=== PATIENT | male | born 1970 | race Caucasian/White ===

== ENCOUNTER 2019-03-24 21:59 | Emergency (ER) | payer OTHER ==
[~2019-03-24] VITALS: Ht 182.9 cm; Wt 90.7 kg
[2019-03-24] MEDS ORDERED: METFORMIN HCL500 MG PO (22:10)
[2019-03-24] MEDS ORDERED: TRAZODONE 150150 M1 (22:11)
[2019-03-24] MEDS ORDERED: LANTUS100 UNIT/M (22:11)
[2019-03-24] MEDS ORDERED: ALPRAZOLAM2 M1 (22:11)
[2019-03-24] MEDS ORDERED: NOVOLIN R100 UNIT/1 (22:12)
[2019-03-24 22:26] LABS: HEMATOCRIT 46.4 % (42.0-52.0); HEMOGLOBIN 16.1 gm/dL (14.0-18.0); MCH 30.3 pg (26.0-34.0); MCHC 34.8 g/dL (28.0-37.0); MCV 87.1 fL (80.0-100.0); MPV 7.7 fl. (7.2-11.1); NUCLEATED RBCS 0 /100WBC; PLATELET COUNT* 285 thou/uL (150-400); RBC 5.32 mil/uL (4.50-6.00); RDW-CV 14.6 % (10.5-14.5); WBC 12.9 thou/uL (4.0-11.0)
[2019-03-24 22:29] LABS: ANION GAP 11 mmol/L (7-16); BUN 14 mg/dL (7-18); CALCIUM 9.5 mg/dL (8.5-10.1); CHLORIDE 101 mmol/L (98-107); CO2 26 mmol/L (21-32); CREATININE 1.2 mg/dL (0.6-1.3); GLUCOSE 167 mg/dL (70-99); POTASSIUM 3.4 mmol/L (3.5-5.1); SODIUM 138 mmol/L (136-145)
[2019-03-24 22:33] LABS: APTT 25.5 Seconds (25.0-31.3); PROTIME 10.3 Seconds (9.20-11.50)
[2019-03-24 22:43] LABS: ALBUMIN 3.9 g/dL (3.4-5.0); ALKALINE PHOSPHATASE 69 U/L (46-116); CK-MB MASS 2.3 ng/mL (<0.5-3.6); LIPASE 120 U/L (73-393); MAGNESIUM 1.5 mg/dL (1.8-2.4); NT-PRO BRAIN NAT PEPTIDE 5 pg/mL (<300); SGOT 12 U/L (15-37); SGPT 23 U/L (30-65); TOTAL BILIRUBIN 0.4 mg/dL (<0.1-1.0); TOTAL PROTEIN 7.2 g/dL (6.4-8.2); TROPONIN-I LEVEL <0.06 ng/mL (<0.06)
[2019-03-24 23:00] LABS: ABSOLUTE EOSINOPHILS 0.6 thou/uL (0.0-0.7); ABSOLUTE LYMPHOCYTES 7.9 thou/uL (0.8-5.3); ABSOLUTE NEUTROPHILS 3.4 thou/uL (1.6-8.1)
[2019-03-24 23:01] LABS: PLATELET ESTIMATE ADEQUATE
[2019-03-25 00:45] VITALS: BP 108/70
--- NOTE | 2019-03-25 14:07 | EKG ---
[place] [address] ELECTROCARDIOGRAM REPORT Name: DANNIELLE STARKEY Room: [facility]#: [id number] Admission: 03/24/19 Attend Phys: Discharge: 03/25/19 Date of : 74 Report #: [id number] THIS REPORT FOR: //name// [facility] ED Test Date: 2019-03-24 Test Time: 22:02:37 Pat Name: DANNIELLE STARKEY Department: Room: Gender: M Licensed Investment Sales Assistant: [place] : 1970 Requested By: Elijah Rondon Order Number: [id number] MD: Aniket Jimenez Measurements Intervals [place] Rate: 77 P: 47 TN: 170 QRS: 50 QRSD: 92 T: 31 QT: 374 QTc: 424 Interpretive Statements Sinus rhythm Borderline low voltage, extremity leads No previous ECG available for comparison Electronically Signed On 03-25-2019 14:07:08 CDT by Aniket Jimenez [email or web address] <ELECTRONICALLY SIGNED> By: Aniket Jimenez MD, FACC 03/25/19 1407 220 220 Aniket Jimenez MD, FACC /EPI
== END 2019-03-25 00:45 | disposition home or self-care (01) ==
LOC: M.ERS 21:59
PROVIDERS: Family Medicine
DX: R07.89 Other chest pain (principal); E11.9 Type 2 diabetes mellitus without complications; Z88.5 Allergy status to narcotic agent; Z90.49 Acquired absence of other specified parts of digestive tract; Z79.4 Long term (current) use of insulin

== ENCOUNTER 2019-09-02 10:02 | Emergency (ER) | payer OTHER ==
[~2019-09-02] VITALS: Ht 182.9 cm; Wt 95.3 kg
[~2019-09-02 10:02] MED LIST: ALPRAZOLAM2 M1; LANTUS100 UNIT/M; METFORMIN HCL500 MG PO; NOVOLIN R100 UNIT/1; TRAZODONE 150150 M1
[2019-09-02 10:42] LABS: INFLUENZA A ANTIGEN Negative (Negative); INFLUENZA B ANTIGEN Negative (Negative)
[2019-09-02] MEDS ORDERED: ONDANSETRON HCL4 M2 PO (11:06)
[2019-09-02] MEDS ORDERED: TAMIFLU75 MG PO (11:06)
[2019-09-02] MEDS ORDERED: VENTOLIN HFA 1818 GM INH (11:07)
[2019-09-02 11:24] VITALS: BP 140/93
== END 2019-09-02 11:25 | disposition home or self-care (01) ==
LOC: M.ERS 10:02
PROVIDERS: Nurse Practitioner Family
DX: J06.9 Acute upper respiratory infection, unspecified (principal); E11.9 Type 2 diabetes mellitus without complications; Z88.5 Allergy status to narcotic agent; Z88.8 Allergy status to other drugs, medicaments and biological substances; Z90.49 Acquired absence of other specified parts of digestive tract; Z79.4 Long term (current) use of insulin

== ENCOUNTER 2019-11-24 07:53 | Emergency (ER) | payer BC ==
[~2019-11-24] VITALS: Ht 203.2 cm; Wt 90.7 kg
[~2019-11-24 07:53] MED LIST changes: +ONDANSETRON HCL4 M2 PO; +TAMIFLU75 MG PO; +VENTOLIN HFA 1818 GM INH
[2019-11-24] MEDS ORDERED: CHOLESTEROL MED (08:06)
[2019-11-24] MEDS ORDERED: HIGH BP MED (08:06)
[2019-11-24 08:26] LABS: ABSOLUTE BASOPHILS 0.1 thou/uL (0.0-0.2); ABSOLUTE EOSINOPHILS 0.3 thou/uL (0.0-0.7); ABSOLUTE LYMPHOCYTES 6.7 thou/uL (0.8-5.3); ABSOLUTE MONOCYTES 0.6 thou/uL (0.0-1.2); ABSOLUTE NEUTROPHILS 3.6 thou/uL (1.6-8.1); BASOPHILS 0.5 %; EOSINOPHILS 2.4 %; HEMOGLOBIN 16.9 gm/dL (14.0-18.0); LYMPHOCYTES 59.7 %; MCH 30.5 pg (26.0-34.0); MCHC 34.6 g/dL (28.0-37.0); MCV 88.1 fL (80.0-100.0); MPV 7.3 fl. (7.2-11.1); NUCLEATED RBCS 0 /100WBC; PLATELET COUNT* 269 thou/uL (150-400); POLYS 32.4 %; RBC 5.56 mil/uL (4.50-6.00); RDW-CV 14.4 % (10.5-14.5); WBC 11.2 thou/uL (4.0-11.0)
[2019-11-24 08:38] LABS: PROTIME 10.1 Seconds (9.20-11.50)
[2019-11-24 08:40] LABS: CALCIUM 8.6 mg/dL (8.5-10.1)
[2019-11-24 08:49] LABS: ALBUMIN 3.9 g/dL (3.4-5.0); TOTAL BILIRUBIN 0.4 mg/dL (<0.1-1.0); TOTAL PROTEIN 7.4 g/dL (6.4-8.2)
[2019-11-24] MEDS ORDERED: TRAMADOL 50 MG50 MG PO (09:30)
[2019-11-24 09:53] VITALS: BP 111/79
--- NOTE | 2019-11-24 15:29 | EKG ---
[place] [address] ELECTROCARDIOGRAM REPORT Name: JAKYDANNIELLE W Room: [facility]#: [id number] Admission: 11/24/19 Attend Phys: Discharge: 11/24/19 Date of : 74 Date of Service: 11/24/19 0804 Report #: [id number] THIS REPORT FOR: //name// [facility] ED Test Date: 2019-11-24 Test Time: 08:04:56 Pat Name: DANNIELLE STARKEY Department: Room: Gender: Personnel And Payroll Technician: S : 1970 Requested By: Elijah Rondon Order Number: [id number] MD: Cesario Pierce Measurements Intervals [place] Rate: 87 P: 55 HI: 164 QRS: 53 QRSD: 91 T: 44 QT: 368 QTc: 443 Interpretive Statements Sinus rhythm Baseline wander in lead(s) V2 Compared to ECG 03/24/2019 22:02:37 No significant changes Electronically Signed On 11-24-2019 15:28:08 CDT by Cesario Pierce [email or web address] <ELECTRONICALLY SIGNED> By: Cesario Pierce MD, [facility] 11/24/19 1528 0804 0804 Cesario Pierce MD, [facility] /EPI
== END 2019-11-24 09:55 | disposition home or self-care (01) ==
LOC: M.ERS 07:53
PROVIDERS: Family Medicine
DX: R55 Syncope and collapse (principal); Z88.6 Allergy status to analgesic agent; E11.9 Type 2 diabetes mellitus without complications

== ENCOUNTER 2020-04-12 08:51 | Emergency (ER) | payer OTHER ==
[~2020-04-12] VITALS: Ht 182.9 cm; Wt 87.1 kg
[~2020-04-12 08:51] MED LIST changes: +CHOLESTEROL MED; +HIGH BP MED; +TRAMADOL 50 MG50 MG PO
[2020-04-12] MEDS ORDERED: ZOFRAN ODT4 MG PO (10:32)
[2020-04-12] MEDS ORDERED: NORCO 5-325 TA1 EAC2 PO (10:32)
[2020-04-12 11:00] VITALS: BP 156/89
== END 2020-04-12 11:01 | disposition home or self-care (01) ==
LOC: M.ERS 08:51
DX: M23.91 Unspecified internal derangement of right knee (principal); E11.9 Type 2 diabetes mellitus without complications; Z88.5 Allergy status to narcotic agent; Z88.6 Allergy status to analgesic agent; Z90.49 Acquired absence of other specified parts of digestive tract; Z79.4 Long term (current) use of insulin

== ENCOUNTER 2020-06-22 09:54 | Emergency (ER) | payer OTHER ==
[~2020-06-22] VITALS: Ht 182.9 cm; Wt 83.0 kg
[~2020-06-22 09:54] MED LIST changes: +NORCO 5-325 TA1 EAC2 PO; +ZOFRAN ODT4 MG PO
[2020-06-22] MEDS ORDERED: VICTOZA0.6 MG/0.1 SUBQ (10:06)
[2020-06-22 10:39] LABS: HEMATOCRIT 45.2 % (42.0-52.0); HEMOGLOBIN 15.3 gm/dL (14.0-18.0); MCH 29.8 pg (26.0-34.0); MCHC 33.8 g/dL (28.0-37.0); MCV 87.9 fL (80.0-100.0); MPV 7.1 fl. (7.2-11.1); NUCLEATED RBCS 0 /100WBC; PLATELET COUNT* 241 thou/uL (150-400); RBC 5.14 mil/uL (4.50-6.00); RDW-CV 14.4 % (10.5-14.5); WBC 9.9 thou/uL (4.0-11.0)
[2020-06-22 10:54] LABS: ALBUMIN 3.7 g/dL (3.4-5.0); CALCIUM 8.8 mg/dL (8.5-10.1); POTASSIUM 3.8 mmol/L (3.5-5.1); TOTAL BILIRUBIN 0.4 mg/dL (<0.1-1.0); TOTAL PROTEIN 6.4 g/dL (6.4-8.2)
[2020-06-22 11:22] LABS: ABSOLUTE EOSINOPHILS 0.4 thou/uL (0.0-0.7); ABSOLUTE LYMPHOCYTES 5.3 thou/uL (0.8-5.3); ABSOLUTE MONOCYTES 0.7 thou/uL (0.0-1.2); ABSOLUTE NEUTROPHILS 3.5 thou/uL (1.6-8.1); ATYPICAL LYMPHS 3 %
[2020-06-22 11:23] LABS: PLATELET ESTIMATE ADEQUATE
[2020-06-22 11:28] LABS: URINE BILIRUBIN NEGATIVE (Negative); URINE BLOOD NEGATIVE (Negative); URINE CLARITY CLEAR; URINE COLOR YELLOW; URINE GLUCOSE-RANDOM NEGATIVE (Negative); URINE KETONES NEGATIVE (Negative); URINE LEUKOCYTES-REFLEX NEGATIVE (Negative); URINE NITRITE-REFLEX NEGATIVE (Negative); URINE PROTEIN NEGATIVE (Negative); URINE SPECIFIC GRAVITY <= 1.005 (1.005-1.030); URINE UROBILINOGEN 0.2 E.U./dl (0.2-1.0)
[2020-06-22] MEDS ORDERED: ZOFRAN ODT4 MG DISSOLVE (11:28)
[2020-06-22 11:34] VITALS: BP 117/73
== END 2020-06-22 11:35 | disposition home or self-care (01) ==
LOC: M.ERS 09:54
PROVIDERS: Family Medicine
DX: R11.2 Nausea with vomiting, unspecified (principal); T50.995A Adverse effect of other drugs, medicaments and biological substances, initial encounter; E11.9 Type 2 diabetes mellitus without complications; Z90.49 Acquired absence of other specified parts of digestive tract; Z88.5 Allergy status to narcotic agent; Z88.8 Allergy status to other drugs, medicaments and biological substances; Z79.4 Long term (current) use of insulin; Y92.89 Other specified places as the place of occurrence of the external cause